=== PATIENT | female | born 1955 ===

== ENCOUNTER → 2019-02-11 | Outpatient (CLI) | payer MEDICARE, MEDICAID ==
--- NOTE | 2019-02-11 11:09 | CR ---
CLINICAL HISTORY: 64-year-old female history "influenza virus". No comparison films this institution. INTERPRETATION: PA/lateral chest films reveal sternotomy wires and aortic valve prosthesis. 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 Ectasia dorsal aorta. Normal cardiac silhouette without cephalization of vascular flow, signs of alveolar edema or dependent pleural effusion. Subtle peribronchial "cuffing" but no focal lobar pneumonia, lung mass or hilar lymphadenopathy (tracheal and bronchial airways unremarkable). CONCLUSION: Mild bronchitis. No lobar pneumonia. (Incidental evidence heart surgery).
== END ==
LOC: DL.CLIN 09:57
PROVIDERS: ATTEND Nurse Practitioner
DX: J10.1 Influenza due to other identified influenza virus with other respiratory manifestations (principal); J40 Bronchitis, not specified as acute or chronic
CPT/HCPCS: 71046; 99212

== ENCOUNTER → 2019-02-25 | Outpatient (CLI) | payer MEDICARE | LOC: DL.CLIN 10:15 | PROVIDERS: ATTEND Nurse Practitioner | DX: Z51.81 Encounter for therapeutic drug level monitoring (principal); Z95.2 Presence of prosthetic heart valve; Z79.01 Long term (current) use of anticoagulants | CPT/HCPCS: 36415; 85610 ==

== ENCOUNTER 2023-08-20 21:02 | Emergency (ER) | payer MEDICARE, MEDICAID ==
[2023-08-20] MEDS ORDERED: Sodium Chloride 0.9% 10 ML Syringe FLUSH PRN (21:21)
[2023-08-20 21:39] LABS: BASOPHILS PERCENT AUTO 0.3 % (0.0-1.0); EOSINOPHILS PERCENT AUTO 2.1 % (1.0-3.0); HEMATOCRIT 41.4 % (37.0-47.0); HEMOGLOBIN 13.6 g/dL (12.0-16.0); LYMPHOCYTES PERCENT AUTO 9.2 % (20.5-50.1); MEAN CORPUSCULAR HEMOGLOBIN 29.8 pg (27.0-34.0); MEAN CORPUSCULAR HGB CONC 32.9 g/dL (33.0-35.0); MEAN CORPUSCULAR VOLUME 90.6 fL (80-100); MONOCYTES PERCENT AUTO 8.2 % (2-8); NEUTROPHILS PERCENT AUTO 80.2 % (42.2-75.2); PLATELET COUNT,PLT 295 10^3/uL (150-450); RED BLOOD CELL COUNT 4.57 10^6/uL (4.2-5.4); WHITE BLOOD CELL COUNT,WBC 11.9 10^3/uL (5.0-10.0)
[2023-08-20 21:55] LABS: ANION GAP 11.7 mEq/L (7-13); BLOOD UREA NITROGEN,BUN 20 mg/dL (7-18); CARBON DIOXIDE,CO2 29 mmol/L (21-32); CHLORIDE,CL 100 mmol/L (98-107); GLUCOSE RANDOM 121 mg/dL (70-99); POTASSIUM,K 3.7 mmol/L (3.5-5.1); SODIUM,NA 137 mmol/L (136-145)
[2023-08-20 21:56] LABS: A/G RATIO 1.1; ALANINE AMINOTRANSFERASE,ALT 47 U/L (14-59); ALBUMIN 4.2 g/dL (3.4-5.0); ALKALINE PHOSPHATASE 79 U/L (46-116); AMYLASE 68 U/L (25-115); ASPARTATE AMNIOTRANSFERASE,AST 27 U/L (15-37); BILIRUBIN TOTAL 0.4 mg/dL (0.2-1.0); BUN/CREATININE RATIO 23.8 (No establ ref range); CALCIUM 9.2 mg/dL (8.5-10.1); CREATININE 0.84 mg/dL (0.55-1.02); ETHANOL BLOOD MEDICAL 3 mg/dL (0); LIPASE 30 U/L (16-77)
[2023-08-20 21:59] LABS: LACTIC ACID 1.4 mmol/L (0.4-2.0)
[2023-08-20 22:09] LABS: BILIRUBIN,URINE NEGATIVE (NEGATIVE); COLOR,URINE YELLOW (YELLOW); GLUCOSE,URINE NEGATIVE (NEGATIVE); KETONES,URINE TRACE (NEGATIVE); LEUKOCYTE ESTERASE,URINE SMALL (NEGATIVE); NITRITE,URINE POSITIVE (NEGATIVE); OCCULT BLOOD,URINE MODERATE (NEGATIVE); PROTEIN,URINE 30 (NEGATIVE); UROBILINOGEN,URINE 0.2 mg/dL (0.2-1.0)
[2023-08-20 22:09] LABS: C-REACTIVE PROTEIN < 0.50 ng/dL (<=0.50); ESTIMATED GFR 75 mL/min (>=60)
[2023-08-20 22:15] LABS: APPEARANCE,URINE SLIGHTLY CLOUDY (CLEAR)
[2023-08-20 22:16] LABS: AMPHETAMINES,URINE NEGATIVE (NEGATIVE); BARBITURATES,URINE NEGATIVE (NEGATIVE); BENZODIAZEPINE,URINE NEGATIVE (NEGATIVE); MDMA (ECSTASY), URINE NEGATIVE (NEGATIVE); METHADONE,URINE NEGATIVE (NEGATIVE); METHAMPHETAMINES,URINE NEGATIVE (NEGATIVE); OPIATES,URINE NEGATIVE (NEGATIVE); OXYCODONE,URINE NEGATIVE (NEGATIVE); PHENCYCLIDINE,URINE NEGATIVE (NEGATIVE); TCA,URINE NEGATIVE (NEGATIVE)
[2023-08-20 22:28] LABS: BACTERIA,URINE MANY /HPF (0-FEW/HPF); EPITHELIAL CELLS,URINE MODERATE /HPF (NOT SEEN); MUCUS,URINE FEW /LPF (NOT SEEN); WBC,URINE 30-40 /HPF (0-5/HPF)
[2023-08-20] MEDS: cefTRIAXone 2 GM Vial IVPUSH ONE (23:11)
[2023-08-20] MEDS: Ciprofloxacin 500 MG Tab PO ONE (23:11)
[2023-08-20] MEDS: fentaNYL 100 MCG/2 ML SDV IVPUSH ONE (23:30)
== END 2023-08-20 23:29 | disposition home or self-care (01) ==
LOC: DL.ED 21:02
DX: N10 Acute pyelonephritis (principal); E78.00 Pure hypercholesterolemia, unspecified; E03.9 Hypothyroidism, unspecified; M19.90 Unspecified osteoarthritis, unspecified site; E66.9 Obesity, unspecified; Z68.36 Body mass index [BMI] 36.0-36.9, adult; Z86.16 Personal history of COVID-19; Z79.899 Other long term (current) drug therapy; Z79.82 Long term (current) use of aspirin
CPT/HCPCS: 36415; 80053; 80305-QW; 80307; 81001; 82150; 83605; 83690; 83735; 85025; 86140; 87086; 87088; 87186; 96374; 99284; 99284-25; A9270-GY; J0696